=== PATIENT | male | born 1945 | race Caucasian/White ===

== ENCOUNTER 2018-12-31 05:38 | Day surgery (SDC) | payer OTHER ==
[~2018-12-31] VITALS: Ht 175.3 cm; Wt 117.5 kg
--- NOTE | ~2018-12-31 | O ---
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 PROCEDURE: Bilateral lower lid ectropion repair with left transconjunctival lower lid and cheek lift. SURGEON: Fan Araujo M.D. CIGARETTE CATCHER: None. ANESTHESIA: MAC. COMPLICATIONS: None. 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 He presents today for a bilateral lower lid ectropion repair combined with a left-sided lower lid and cheek lift in order to attempt to improve his ocular surface milieu, visual function and level of comfort. Informed consent was obtained to include but not limited to the potential risk for loss of vision, bleeding, infection, failure to improve the problem and the potential need for further surgery or treatment. DESCRIPTION OF PROCEDURE: The patient was taken to the operating room where 2% Xylocaine with epinephrine mixed with equal parts of 0.75% Marcaine with Wydase was administered transcutaneously and transconjunctivally to each lower lid and lateral canthus. On the left side, additionally the left cheek and infratemporal fossa were anesthetized. The patient was subsequently prepped and draped in the usual sterile fashion. A Traci clamp was then used to clamp the left lateral canthus following which a sharp canthotomy and cantholysis was [address] [address] OPERATIVE REPORT Name: ALAN DUARTE Room #: 150-7 [facility]#: [id number] Admission: 12/31/18 ������������������ Attend Phys: Fan Araujo MD Discharge: ������������������ Date of : 49 Report #: [id number]. A tarsal strip was then prepared laterally removing the lash bearing portion of the redundant lid margin and the redundant tarsal plate. The field was then dried with diligent pinpoint monopolar cautery. A transconjunctival incision was then made below the inferior border of the tarsal plate and carried out into the premalar tissues. Hemostasis was then re-achieved. Those lower lid and cheek tissues were then elevated and resuspended from the periosteum with interrupted 5-0 Prolene sutures. The lower lid and cheek lifted well. Attention was then turned to completion of the ectropion repair. The previously prepared tarsal strip was attached to the internal portion of the lateral orbital tubercle with interrupted 5-0 Prolene sutures. The subcutaneous structures and the skin were then closed with a multilayer 6-0 plain gut closure. The right lateral canthus was then clamped with a Jay clamp. A sharp canthotomy and cantholysis was then performed. A tarsal strip was then prepared removing the lash bearing portion of the redundant lid margin and the redundant tarsal plate. Hemostasis was then re-achieved. The tarsal strip was then secured to the internal portion of the lateral orbital tubercle with interrupted 5-0 Prolene sutures. The subcutaneous structures and the skin were then closed with interrupted 6-0 plain gut sutures. The wounds were then cleaned and dressed with erythromycin ophthalmic ointment. The patient subsequently transported to the recovery area having tolerated the procedures well with no anesthetic or operative complications being noted. ��������������������������������������������� ���������������������������������������� By: ��������������������������������������������� [id number] Fan Araujo MD /nt
[~2018-12-31 05:38] MED LIST: B12INJ IM; OMEPRAZOLE40 MG PO; VENTOLIN HFA 1818 GM INH; WIXELA 250-501 EACH INH
[2018-12-31 07:45] VITALS: BP 137/84
== END 2018-12-31 08:55 | disposition home or self-care (01) ==
LOC: OR 05:38 → TBA 05:38 → OR 08:55
DX: H02.102 Unspecified ectropion of right lower eyelid (principal); H02.105 Unspecified ectropion of left lower eyelid; H02.535 Eyelid retraction left lower eyelid; H02.205 Unspecified lagophthalmos left lower eyelid; H18.9 Unspecified disorder of cornea; G47.33 Obstructive sleep apnea (adult) (pediatric); Z87.891 Personal history of nicotine dependence; K21.9 Gastro-esophageal reflux disease without esophagitis; Z96.651 Presence of right artificial knee joint; Z98.890 Other specified postprocedural states; Z79.899 Other long term (current) drug therapy; Z86.718 Personal history of other venous thrombosis and embolism; Z79.01 Long term (current) use of anticoagulants; Z88.2 Allergy status to sulfonamides
CPT/HCPCS: 50010; 50101; 50386; 50398; 51636; 56527; 56531; 62110; 62850; 70005